=== PATIENT | female | born 1990 | race Two or more races ===

== ENCOUNTER 2020-01-24 13:12 | Observation (INO) | payer OTHER ==
[2020-01-24] MEDS ORDERED: PREN-217 PO (13:34)
[2020-01-24 13:36] VITALS: BP 101/61
== END 2020-01-24 16:10 | disposition home or self-care (01) ==
LOC: 4S 13:12
PROVIDERS: ADMIT Obstetrics & Gynecology Obstetrics; ATTEND Obstetrics & Gynecology Obstetrics
DX: Z34.83 Encounter for supervision of other normal pregnancy, third trimester (principal); Z20.828 Contact with and (suspected) exposure to other viral communicable diseases; Z3A.35 35 weeks gestation of pregnancy
CPT/HCPCS: 59025; 87635; G0378

== ENCOUNTER 2020-01-25 07:11 | Inpatient (IN) | payer OTHER ==
[~2020-01-25] VITALS: Ht 154.9 cm; Wt 73.0 kg
[~2020-01-25 07:11] MED LIST: PREN-217 PO
[2020-01-25] MEDS ORDERED: RINGERS SOLUTION,LACTATED 1,000 ML IV PRN (07:36)
[2020-01-25] MEDS ORDERED: OXYTOCIN 30 UNITS/LACT RINGERS 500 ML IV ONE (07:36)
[2020-01-25] MEDS ORDERED: OXYTOCIN 30 UNITS/LACT RINGERS 500 ML IV PRN ×2 (07:36→11:45)
[2020-01-25 07:43] VITALS: BP 112/68
[2020-01-25] MEDS ORDERED: METHYLERGONOVINE MALEATE 0.2 MG/ML VIAL IM PRN (07:45)
[2020-01-25] MEDS ORDERED: CITRIC ACID/SODIUM CITRATE 30 ML SOLUTION UDCUP PO PRN (07:45)
[2020-01-25] MEDS ORDERED: LIDOCAINE/PF 1% 30 ML VIAL INJ PRN (07:45)
[2020-01-25] MEDS ORDERED: METOCLOPRAMIDE HCL 5 MG/ML 2 ML VIAL IVP PRN (07:45)
[2020-01-25] MEDS ORDERED: TERBUTALINE SULFATE 1 MG/ML VIAL SQ PRN (07:45)
[2020-01-25] MEDS ORDERED: FentaNYL CITRATE-PF 100 MCG/2 ML VIAL IVP PRN (07:45)
[2020-01-25] MEDS ORDERED: OXYGEN THERAPY IH SCH (08:00)
[2020-01-25 08:12] LABS: BASOPHILS % (AUTO) 0.6 % (0.0-2.0); EOSINOPHILS % (AUTO) 0.2 % (1.0-6.0); HEMATOCRIT 35.2 % (36-46); HEMOGLOBIN 11.7 g/dL (12.0-16.0); LYMPHOCYTES # (AUTO) 1.2 K/uL (1.0-4.8); LYMPHOCYTES % (AUTO) 18.2 % (22.0-44.0); MEAN CORPUSCULAR HEMOGLOBIN 27.9 pg (26.0-34.0); MEAN CORPUSCULAR HGB CONC 33.2 G/dL (31.0-37.0); MEAN CORPUSCULAR VOLUME 84 fL (80-100); MONOCYTES # (AUTO) 0.3 K/uL (0.1-1.0); MONOCYTES % (AUTO) 5.3 % (2.0-9.0); NEUTROPHILS % (AUTO) 75.7 % (40.0-70.0); PLATELET COUNT (AUTO)-OB 256 K/uL (150-450); RED BLOOD CELL COUNT(AUTO) 4.18 MIL/uL (4.00-5.20); RED CELL DISTRIBUTION WIDTH 13.5 % (11.5-14.5)
[2020-01-25] MEDS: RINGERS SOLUTION,LACTATED 1,000 ML IV SCH ×2 (09:28→11:11)
[2020-01-25] MEDS ORDERED: ROPIVACAINE HCL/PF 0.2% 100 ML ED ONE (13:23)
[2020-01-25] MEDS ORDERED: ROPIVACAINE HCL/PF 0.2% 100 ML ED PRN (13:56)
[2020-01-25] MEDS ORDERED: DiphenhydrAMINE HCL 50 MG/ML VIAL IVP PRN (14:00)
[2020-01-25] MEDS ORDERED: NALBUPHINE HCL 10 MG/ML VIAL IVP PRN (14:00)
[2020-01-25] MEDS ORDERED: ONDANSETRON HCL 4 MG/2 ML VIAL IVP PRN (14:00)
[2020-01-25] MEDS ORDERED: RINGERS SOLUTION,LACTATED 1,000 ML IV ONE (17:26)
[2020-01-25] MEDS ORDERED: OxyCODONE HCL/ACETAMINOPHEN 5-325 MG TABLET PO PRN ×2 (17:30)
[2020-01-25] MEDS ORDERED: BENZOCAINE 20%/MENTHOL 56 GM SPRAY CANISTER TP PRN (17:30)
[2020-01-25] MEDS ORDERED: GLYCERIN/WITCH HAZEL LEAF 40 PADS JAR TP PRN (17:30)
[2020-01-25] MEDS ORDERED: LANOLIN 7 GM OINTMENT TP PRN (17:30)
[2020-01-25] MEDS ORDERED: MEASLES/MUMPS/RUBELLA VACCINE, LIVE 0.5 ML/VIAL SQ ONE (17:30)
[2020-01-25] MEDS ORDERED: IBUPROFEN 600 MG TABLET PO PRN (17:30)
[2020-01-25] MEDS ORDERED: PNEUMOCOCCAL VACCINE POLYVALENT 0.5 ML VIAL [PPSV23] IM ONE (17:45)
[2020-01-25] MEDS: MAGNESIUM HYDROXIDE SUSPENSION 30 ML UDCUP PO SCH (21:56)
[2020-01-26] MEDS: MAGNESIUM HYDROXIDE SUSPENSION 30 ML UDCUP PO SCH (09:01)
[2020-01-26] MEDS ORDERED: IBUP-2070 PO (14:55)
== END 2020-01-26 18:25 | disposition home or self-care (01) | DRG 807 ==
LOC: OBSVTOIN 07:11 → 4S 07:11
PROVIDERS: ADMIT Obstetrics & Gynecology; ATTEND Obstetrics & Gynecology
PROC: 10E0XZZ Delivery of Products of Conception, External Approach (ICD-10-PCS; principal; 2020-01-25)
PROC: 0HQ9XZZ Repair Perineum Skin, External Approach (ICD-10-PCS; 2020-01-25)
PROC: 3E0R3BZ Introduction of Anesthetic Agent into Spinal Canal, Percutaneous Approach (ICD-10-PCS; 2020-01-25)
PROC: 00HU33Z Insertion of Infusion Device into Spinal Canal, Percutaneous Approach (ICD-10-PCS; 2020-01-25)
DX: O77.0 Labor and delivery complicated by meconium in amniotic fluid (principal); Z37.0 Single live birth; O70.0 First degree perineal laceration during delivery; Z3A.39 39 weeks gestation of pregnancy
CPT/HCPCS: 86850; 86900; 86901; J2590; J2795; J7120